=== PATIENT | male | born 1960 | race Caucasian/White ===

== ENCOUNTER 2020-06-20 04:42 | Inpatient (IN) | payer MEDICAID, OTHER ==
[~2020-06-20] VITALS: Ht 185.4 cm; Wt 78.5 kg
[2020-06-20] MEDS ORDERED: ONDANSETRON HCL 4 MG/2 ML VIAL IV ONE (05:30)
[2020-06-20] MEDS ORDERED: MORPHINE SULFATE 4 MG/ML SYR/VIAL IV ONE (05:30)
[2020-06-20] MEDS ORDERED: SODIUM CHLORIDE 0.9% 1,000 ML IV ONE ×3 (05:30→06:41)
[2020-06-20 06:24] LABS: Basophils # (auto) 0.1 10 ^3/uL (0-0.2); Basophils % (auto) 0.8 % (0.0-2.0); Eosinophils # (auto) 0.5 10 ^3/uL (0-0.8); Eosinophils % (auto) 4.7 % (0.0-7.0); Hematocrit 42.9 % (41.0-53.0); Hemoglobin 14.8 g/dL (13.5-17.5); Lymphocytes # (auto) 1.4 10 ^3/uL (0.4-5.4); Lymphocytes % (auto) 14.1 % (10.0-50.0); Mean Corpuscular Hemoglobin 30.8 pg (28.0-32.0); Mean Corpuscular Hgb Conc. 34.5 g/dL (32.0-36.0); Mean Corpuscular Volume 89.3 fL (80.0-100.0); Monocytes # (auto) 0.8 10 ^3/uL (0-1.3); Monocytes % (auto) 8.2 % (0.0-12.0); Neutrophils # (auto) 7.4 10 ^3/uL (1.6-8.6); Neutrophils % (auto) 72.2 % (37.0-80.0); Nucleated Red Blood Cells % 0.2 %; Platelet Count (auto) 158 10^3/uL (140-450); Red Blood Cells 4.81 10^6/uL (4.5-5.90); Red Cell Distribution Width 14.2 % (11.8-14.3); White Blood Cell 10.3 10^3/uL (4.4-10.8)
[2020-06-20 06:34] LABS: Alanine Aminotransferase 77 U/L (16-61); Albumin 3.3 g/dL (3.4-5.0); Amylase 65 U/L (25-115); Anion Gap 7 (5-15); Aspartate Aminotransferase 72 U/L (15-37); Blood Urea Nitrogen 12 mg/dL (7-18); Calcium 8.5 mg/dL (8.5-10.1); Carbon Dioxide 27 mmol/L (21-32); Chloride 104 mmol/L (98-107); GFR African American 89 mL/min; GFR Non-African American 73 mL/min; Glucose 102 mg/dL (74-106); Lipase 164 U/L (73-393); Magnesium 2.1 mg/dL (1.6-2.6); Sodium 138 mmol/L (136-145)
[2020-06-20 06:40] LABS: Alkaline Phosphatase 73 U/L (45-117); Bilirubin, Total 0.6 mg/dL (0.2-1.0); Total Protein 8.5 g/dL (6.4-8.2)
[2020-06-20] MEDS ORDERED: KETOROLAC TROMETH 30 MG/ML 1ML VIAL IV ONE (06:45)
[2020-06-20] MEDS ORDERED: cloNIDine HCL 0.1 MG TAB PO ONE (07:00)
[2020-06-20] MEDS ORDERED: NITROGLYCERIN 0.4 MG SL TAB SL PRN (09:30)
[2020-06-20] MEDS ORDERED: cefTRIAXone 1GM/50ML D5W 50 ML IV ONE (09:30)
[2020-06-20] MEDS ORDERED: PROMETHAZINE HCL 25 MG/ML 1ML IV PRN (09:30)
[2020-06-20] MEDS: SODIUM CHLORIDE 0.9% 1,000 ML IV SCH ×2 (10:30→19:19)
[2020-06-20] MEDS: FAMOTIDINE 20 MG TAB PO SCH (10:50)
[2020-06-20] MEDS: ENOXAPARIN SOD 40 MG/0.4 ML SYRINGE SC SCH (10:50)
[2020-06-20] MEDS: metroNIDAZOLE 500MG/100ML 100 ML IV SCH (13:59)
[2020-06-20] MEDS: MORPHINE SULF INJ 2 MG/ML SYRINGE 1ML IV PRN (14:16)
--- NOTE | 2020-06-20 15:00 | NUR ---
Telemetry admit from ER LYNN GO admitted to Telemetry unit after SBAR received. Patient oriented to FRANKLYN HERNANDEZ RN primary RN, unit, room, bed, and unit policies regarding patient care. Patient now on continuous telemetry monitoring, tele box # 69 and telemetry reading on arrival to unit is sinus rhythm 81. Patient is on room air, respirations even and unlabored. Patients states pain 6/10. Will medicate per orders. Patient is NPO at this time for possible procedure. Reviewed plan of care with patient, patient verbalized understanding. Bed in low and locked position, call light within reach. Will continue to monitor Q1 hour and PRN.
[2020-06-20 15:41] VITALS: BP 131/68
--- NOTE | 2020-06-20 15:50 | NUR ---
Dr. Carvajal at bedside Discussing plan of care with patient and this RN. Patient to have lithotripsy at 1800 tonight. Patient verbalized understanding. Will continue to monitor Q1 hour and PRN.
[2020-06-20] MEDS ORDERED: LEVO100T8 PO (16:00)
[2020-06-20 17:00] VITALS: BP 118/76
--- NOTE | 2020-06-20 17:24 | NUR ---
Call from Dr. Wei HUI states patient will have procedure Tuesday morning. New orders received. Will continue to monitor Q1 hour and PRN.
[2020-06-20 18:10] LABS: INR 1.2 (0.9-1.15)
--- NOTE | 2020-06-20 19:20 | NUR ---
Closing Note Report given to art specialist RN. No signs or symptoms of distress noted at this time.
--- NOTE | 2020-06-20 19:30 | NUR ---
Opening Shift Note Assumed care of patient, oriented x 4. No S/S of distress/SOB or pain. Instructed on POC and to call for assist PRN, patient verbalized understanding. Bed in lowest and locked position, call light within reach, will continue to monitor for changes Q1hr and PRN.
[2020-06-20 23:06] VITALS: BP 150/74
[2020-06-21] MEDS: metroNIDAZOLE 500MG/100ML 100 ML IV SCH ×4 (00:06→21:47)
[2020-06-21] MEDS: FAMOTIDINE 20 MG TAB PO SCH ×3 (00:07→21:47)
[2020-06-21] MEDS: traMADol HCL 50 MG TAB PO PRN (00:25)
--- NOTE | 2020-06-21 00:30 | NUR ---
COVID 19 swab obtained per hospital protocol and walked to lab by this RN. Patient tolerated well. Will continue care.
[2020-06-21] MEDS: MORPHINE SULF INJ 2 MG/ML SYRINGE 1ML IV PRN ×4 (02:58→19:10)
--- NOTE | 2020-06-21 02:58 | NUR ---
Patient made aware of pending urine sample at beginning of shift and verbalized understanding. Patient reports he urinated earlier in shift and "forgot about the sample". Hat provided for patient to assist in sample collection. Will continue care.
[2020-06-21] MEDS: SODIUM CHLORIDE 0.9% 1,000 ML IV SCH ×2 (04:56→15:19)
[2020-06-21 05:37] VITALS: BP 115/74
[2020-06-21 06:15] LABS: Basophils # (auto) 0.1 10 ^3/uL (0-0.2); Basophils % (auto) 0.7 % (0.0-2.0); Eosinophils # (auto) 0.2 10 ^3/uL (0-0.8); Eosinophils % (auto) 1.4 % (0.0-7.0); Hemoglobin 14.2 g/dL (13.5-17.5); Lymphocytes # (auto) 1.4 10 ^3/uL (0.4-5.4); Lymphocytes % (auto) 12.1 % (10.0-50.0); Mean Corpuscular Hgb Conc. 33.1 g/dL (32.0-36.0); Mean Corpuscular Volume 90.6 fL (80.0-100.0); Monocytes # (auto) 1.1 10 ^3/uL (0-1.3); Monocytes % (auto) 9.6 % (0.0-12.0); Neutrophils # (auto) 8.6 10 ^3/uL (1.6-8.6); Neutrophils % (auto) 76.2 % (37.0-80.0); Nucleated Red Blood Cells % 0.1 %; Platelet Count (auto) 136 10^3/uL (140-450); Red Blood Cells 4.74 10^6/uL (4.5-5.90); Red Cell Distribution Width 14.6 % (11.8-14.3); White Blood Cell 11.3 10^3/uL (4.4-10.8)
[2020-06-21 06:32] LABS: Albumin 2.8 g/dL (3.4-5.0)
[2020-06-21 06:36] LABS: Bilirubin, Total 1.3 mg/dL (0.2-1.0); Total Protein 7.2 g/dL (6.4-8.2)
--- NOTE | 2020-06-21 07:16 | NUR ---
Closing Note Patient lying in bed, eyes closed, respirations even and unlabored, appears asleep. Patient awakens easily to name and touch. Bed in lowest locked position, side rails up x2, call light within reach. No s/s of distress. Care endorsed to dayshift RN.
--- NOTE | 2020-06-21 07:35 | NUR ---
Opening Note Received report from overnight babysitter RN. Patient is resting in bed, easy to wake by calling name. Patient is on room air, respirations even and unlabored. Patient complains of abdominal and flank pain 8/10 and is requesting pain medications. Will medicate per orders. Reviewed plan of care with patient, patient verbalized understanding. Bed in low and locked position, call light within reach. Will continue to monitor Q1 hour and PRN.
[2020-06-21 09:00] VITALS: BP 111/73
[2020-06-21] MEDS: cefTRIAXone 1GM/50ML D5W 50 ML IV SCH (09:40)
[2020-06-21] MEDS: ENOXAPARIN SOD 40 MG/0.4 ML SYRINGE SC SCH (09:40)
--- NOTE | 2020-06-21 11:48 | NUR ---
Dr. Wilbert Sheppard at bedside Discussing plan of care with patient and this RN. New orders received, will implement new orders. Will continue to monitor Q1 hour and PRN.
[2020-06-21] MEDS ORDERED: LEVOTHYROXINE SODIUM 100 MCG/5 ML INJ IV ONE (12:00)
[2020-06-21 13:00] VITALS: BP 151/84
--- NOTE | 2020-06-21 13:29 | NUR ---
urine sample collected and sent to lab
[2020-06-21 13:37] LABS: Urine Bacteria NONE SEEN /hpf (None Seen); Urine Blood 2+ /uL (Negative); Urine Specific Gravity 1.027 (1.001-1.035); Urine WBC 66 /hpf (0 - 3)
[2020-06-21 14:02] LABS: Alcohol, Urine < 3.0 mg/dL (0-10); Barbiturate Scree,Urine NEGATIVE (NEGATIVE); Benzodiazephine Screen, Urine NEGATIVE (NEGATIVE); Cannabinoid Screen, Urine NEGATIVE (NEGATIVE); Cocaine Screen, Urine NEGATIVE (NEGATIVE); Phencyclidine Screen, Urine NEGATIVE (NEGATIVE)
--- NOTE | 2020-06-21 14:40 | NUR ---
phlebotomy technologist at bedside
[2020-06-21 15:01] LABS: Amphetamine Screen, Urine POSITIVE (NEGATIVE); Opiate Scree,Urine POSITIVE (NEGATIVE)
[2020-06-21 17:00] VITALS: BP 125/68
--- NOTE | 2020-06-21 19:05 | NUR ---
Closing Note Report given to shift supervisor melting RN. No signs or symptoms of distress noted at this time.
[2020-06-21 20:00] VITALS: BP 131/68
[2020-06-21 22:00] VITALS: BP 120/81
[2020-06-22] MEDS: SODIUM CHLORIDE 0.9% 1,000 ML IV SCH ×3 (01:19→22:14)
[2020-06-22] MEDS: MORPHINE SULF INJ 2 MG/ML SYRINGE 1ML IV PRN ×5 (04:06→22:15)
[2020-06-22 05:00] VITALS: BP 156/95
[2020-06-22] MEDS: metroNIDAZOLE 500MG/100ML 100 ML IV SCH ×3 (06:23→22:15)
--- NOTE | 2020-06-22 07:15 | NUR ---
Opening Note Received report from night auditor RN. Patient is awake, alert and oriented x4. No signs or symptoms of distress noted at this time. Patient is on room air, respirations even and unlabored. Patient complains of abdominal 9/10 and is requesting pain medications. Will medicate per orders. Reviewed plan of care with patient, patient verbalized understanding. Bed in low and locked position, call light within reach. Will continue to monitor Q1 hour and PRN.
[2020-06-22] MEDS: FAMOTIDINE 20 MG TAB PO SCH ×2 (08:34→22:15)
[2020-06-22] MEDS: cefTRIAXone 1GM/50ML D5W 50 ML IV SCH (08:34)
[2020-06-22] MEDS: LEVOTHYROXINE SODIUM 100 MCG/5 ML INJ IV SCH (08:34)
[2020-06-22] MEDS: ENOXAPARIN SOD 40 MG/0.4 ML SYRINGE SC SCH (08:38)
[2020-06-22 09:00] VITALS: BP 145/86
[2020-06-22] MEDS ORDERED: VANCOMYCIN 1GM/250ML 250 ML IV ONE (10:30)
[2020-06-22] MEDS ORDERED: VANCOMYCIN PER PHARMACY 0 MG IV SCH (10:30)
--- NOTE | 2020-06-22 10:30 | NUR ---
Dr. Wilbert Sheppard at nurse station MD updating this RN on plan of care. New orders received, will implement new orders. Will continue to monitor Q1 hour and PRN.
[2020-06-22 13:00] VITALS: BP 130/77
--- NOTE | 2020-06-22 16:45 | NUR ---
IV Removed IV removed with clean sterile technique, catheter fully intact. Pressure dressing applied to site. Patient tolerated well. Will continue to monitor Q1 hour and PRN.
[2020-06-22 17:00] VITALS: BP 106/82
--- NOTE | 2020-06-22 17:00 | NUR ---
IV Insertion IV access obtained, via clean sterile technique by inserting 22 gauge catheter to left forearm. IV secured properly. No trauma to site. Patient tolerated well. Will continue to monitor Q1 hour and PRN.
--- NOTE | 2020-06-22 18:57 | NUR ---
Closing Note Report given to retail shift manager RN. No signs or symptoms of distress noted at this time.
[2020-06-22] MEDS: traMADol HCL 50 MG TAB PO PRN (19:18)
[2020-06-22 22:00] VITALS: BP 145/83
[2020-06-22] MEDS: TEMAZEPAM 15 MG CAP PO PRN (22:15)
[2020-06-23] MEDS ORDERED: VANCOMYCIN 1GM/250ML 250 ML IV SCH (04:00)
[2020-06-23 05:00] VITALS: BP 141/88
[2020-06-23 05:17] LABS: Basophils # (auto) 0.1 10 ^3/uL (0-0.2); Basophils % (auto) 0.4 % (0.0-2.0); Eosinophils # (auto) 0.2 10 ^3/uL (0-0.8); Eosinophils % (auto) 1.6 % (0.0-7.0); Hematocrit 43.9 % (41.0-53.0); Hemoglobin 14.6 g/dL (13.5-17.5); Lymphocytes # (auto) 1.6 10 ^3/uL (0.4-5.4); Lymphocytes % (auto) 10.3 % (10.0-50.0); Mean Corpuscular Hemoglobin 29.9 pg (28.0-32.0); Mean Corpuscular Hgb Conc. 33.2 g/dL (32.0-36.0); Monocytes # (auto) 1.5 10 ^3/uL (0-1.3); Monocytes % (auto) 9.7 % (0.0-12.0); Neutrophils # (auto) 12.3 10 ^3/uL (1.6-8.6); Nucleated Red Blood Cells % 0.8 %; Platelet Count (auto) 156 10^3/uL (140-450); Red Blood Cells 4.88 10^6/uL (4.5-5.90); Red Cell Distribution Width 14.2 % (11.8-14.3); White Blood Cell 15.7 10^3/uL (4.4-10.8)
[2020-06-23] MEDS: metroNIDAZOLE 500MG/100ML 100 ML IV SCH ×3 (06:00→21:42)
[2020-06-23] MEDS: MORPHINE SULF INJ 2 MG/ML SYRINGE 1ML IV PRN ×4 (06:35→18:29)
--- NOTE | 2020-06-23 07:35 | NUR ---
SHIFT OPENING NOTE RECEIVED PATIENT LYING IN BED SLEEPING COMFORTABLY AND WAS IN NO RESPIRATORY DISTRESS. PATIENT EASILY AWAKENED AND VOICED NO C/O PAIN/ DISCOMFORT AT THIS TIME. SHIFT ASSESSMENT DONE AND CHARTED. PLAN OF CARE, MEDICATIONS SAFETY AND TREATMENTS DISCUSSED WITH PATIENT AND PATIENT VERBALIZED UNDERSTANDING. PATIENT NPO FOR LITHOTRIPSY AND PATIENT IS AWARE. WILL CONTINUE TO MONITOR PATIENT.
[2020-06-23 08:00] VITALS: BP 129/77
[2020-06-23] MEDS: cefTRIAXone 1GM/50ML D5W 50 ML IV SCH (08:49)
[2020-06-23 09:00] VITALS: BP 129/77
[2020-06-23] MEDS ORDERED: LEVOTHYROXINE SODIUM 25 MCG TAB PO ONE (10:00)
[2020-06-23] MEDS ORDERED: LEVOTHYROXINE SODIUM 100 MCG/5 ML INJ IV ONE ×2 (10:00→12:30)
[2020-06-23] MEDS ORDERED: LEVOTHYROXINE SODIUM 112 MCG TAB PO ONE (10:00)
[2020-06-23] MEDS: ENOXAPARIN SOD 40 MG/0.4 ML SYRINGE SC SCH (10:00)
[2020-06-23] MEDS: LEVOTHYROXINE SODIUM 100 MCG/5 ML INJ IV SCH (10:16)
--- NOTE | 2020-06-23 12:41 | NUR ---
Nutrition Assessment Note please see attached link for complete assessment Est energy needs BW 70 [id number] kcal (30-33 kcal/kg BW) Est protein needs: 70-84 g (1.0-1.2 g/kg BW) will reassess prn Addendum: 06/23/20 at [address] Amended: Links added.
[2020-06-23 13:00] VITALS: BP 148/98
--- NOTE | 2020-06-23 13:41 | NUR ---
TALKED TO DR. TIANNA LUCAS STATED THAT PATIENT IS CLEARED TO HAVE LITHOTRIPSY DONE.
[2020-06-23] MEDS: FAMOTIDINE 20 MG TAB PO SCH ×2 (14:31→21:42)
--- NOTE | 2020-06-23 15:39 | NUR ---
assessment Patient is a 60 year old male who is alert and oriented. Patients cognitive abilities are intact. Prior to admission patient lived home with friends and functioned independently. Patient informed me he is able to care for his own ADLs. Per patient he will return home to his prior living arrangements post discharge and family will transport him home. Patient has no insurance. Patient has been assessed by Burak Perez of [facility]. Patient may qualify for [facility] if she brings back all her paperwork. I have provided patient with resources for [facility], Dr. Diaz, and [facility] urgent care for follow up visits. I have provided patient with a prescription card from community assistance program. Patient has no post discharge needs identified at this time. I will continue to monitor and follow up as appropriate. I informed patient he has a right to speak to a social media project manager regarding all care. I informed patient he has a right to participate in any and all discharge planning. Patient does not have a POA and advanced directive. I have offered patient information on POA and advanced directives. I informed the patient the advantages and benefits of having an Advanced Directive. Patient verbalized understanding and agreed to discharge plan. Addendum: 06/23/20 at 1541 by Peggy JOHNSON Amended: Links added.
[2020-06-23 17:00] VITALS: BP 121/79
[2020-06-23] MEDS: VANCOMYCIN 1GM/250ML 250 ML IV SCH (18:33)
--- NOTE | 2020-06-23 19:38 | NUR ---
Received call from Dr. Carvajal who states that the patient's scheduled Lithotripsy has been cancelled by the Anesthesiologist due to the patient's elevated TSH level. Per Dr. Carvajal, the patient will need to be transferred to a higher level of care for the procedure.
[2020-06-23] MEDS: SODIUM CHLORIDE 0.9% 1,000 ML IV SCH (21:43)
[2020-06-23 22:00] VITALS: BP 132/85
[2020-06-24] MEDS: MORPHINE SULF INJ 2 MG/ML SYRINGE 1ML IV PRN ×5 (01:10→20:20)
[2020-06-24] MEDS: SODIUM CHLORIDE 0.9% 1,000 ML IV SCH ×3 (03:19→23:19)
[2020-06-24] MEDS: VANCOMYCIN 1GM/250ML 250 ML IV SCH ×2 (04:00→17:40)
[2020-06-24 04:27] LABS: Calcium 7.4 mg/dL (8.5-10.1)
[2020-06-24 04:28] LABS: BUN/Creatinine Ratio 15.8
[2020-06-24 05:00] VITALS: BP 122/76
--- NOTE | 2020-06-24 05:10 | NUR ---
PAIN ASSESSMENT The patient c/o 10/10 abdominal pain and is requesting pain medication. Will treat with PRN morphine.
[2020-06-24] MEDS: metroNIDAZOLE 500MG/100ML 100 ML IV SCH ×3 (06:00→22:00)
--- NOTE | 2020-06-24 06:10 | NUR ---
PAIN REASSESSMENT The patient is resting comfortably in bed. Will continue to monitor the patient's status.
[2020-06-24] MEDS: cefTRIAXone 1GM/50ML D5W 50 ML IV SCH (08:48)
[2020-06-24 09:00] VITALS: BP 117/72
[2020-06-24] MEDS: FAMOTIDINE 20 MG TAB PO SCH ×2 (09:42→22:00)
[2020-06-24] MEDS: ENOXAPARIN SOD 40 MG/0.4 ML SYRINGE SC SCH (09:53)
[2020-06-24] MEDS ORDERED: LEVOTHYROXINE SODIUM 25 MCG TAB PO SCH (10:00)
[2020-06-24] MEDS ORDERED: LEVOTHYROXINE SODIUM 100 MCG/5 ML INJ IV ONE (10:00)
[2020-06-24] MEDS ORDERED: LEVOTHYROXINE SODIUM 112 MCG TAB PO SCH (10:00)
[2020-06-24 12:00] VITALS: BP 123/71
[2020-06-24] MEDS: traMADol HCL 50 MG TAB PO PRN (12:14)
[2020-06-24 17:00] VITALS: BP 121/76
--- NOTE | 2020-06-24 19:55 | NUR ---
Opening Shift Note Assumed care of patient, awake and alert. No S/S of distress/SOB. Patient c/o 8/10 abdominal pain and is requesting pain medication. Will treat with PRN pain medication. Bed is locked in lowest position with call light within reach. Instructed on POC and to call for assist PRN, will continue to monitor for changes Q1hr and PRN.
[2020-06-24 22:00] VITALS: BP 130/80
[2020-06-25] MEDS: MORPHINE SULF INJ 2 MG/ML SYRINGE 1ML IV PRN ×7 (00:10→22:41)
[2020-06-25] MEDS: TEMAZEPAM 15 MG CAP PO PRN ×2 (00:55→22:57)
[2020-06-25] MEDS: VANCOMYCIN 1GM/250ML 250 ML IV SCH ×2 (04:15→15:42)
[2020-06-25 05:00] VITALS: BP 127/97
[2020-06-25] MEDS: metroNIDAZOLE 500MG/100ML 100 ML IV SCH ×3 (06:00→22:40)
[2020-06-25] MEDS: LEVOTHYROXINE SODIUM 25 MCG TAB PO SCH (07:00)
[2020-06-25] MEDS: LEVOTHYROXINE SODIUM 112 MCG TAB PO SCH (07:00)
[2020-06-25] MEDS: cefTRIAXone 1GM/50ML D5W 50 ML IV SCH (08:49)
[2020-06-25 09:00] VITALS: BP 126/67
[2020-06-25] MEDS: ENOXAPARIN SOD 40 MG/0.4 ML SYRINGE SC SCH (10:00)
[2020-06-25] MEDS: FAMOTIDINE 20 MG TAB PO SCH ×2 (10:33→22:40)
[2020-06-25 13:00] VITALS: BP 102/71
--- NOTE | 2020-06-25 14:28 | NUR ---
MORPHINE 2 MG IVP GIVEN PER PRN ORDER FOR C/O SHARP LOWER BACK AND ABDOMINAL PAIN.
--- NOTE | 2020-06-25 14:30 | NUR ---
PATIENT FEELING SAD TODAY THEY HAD HIS DOG FOR 16 YEARS "PUT DOWN".
--- NOTE | 2020-06-25 15:55 | NUR ---
Nutrition Followup Note Pt wt is 79.7 kg Pt is with a regular diet, appetite is good aeb ave 88% PO intake over 2 meals per RN doc. Pt with no distress. Will continue to monitor PO status, skin status, pertinent labs and weight trends. Will f/u in 3-5 days. Est energy needs BW 70 [id number] kcal (30-33 kcal/kg BW) Est protein needs: 70-84 g (1.0-1.2 g/kg BW) will reassess prn LABS: BUN 21 H, CR 1.33 H, Ca 7.4 L, Alb 2.8 L GI: Pt had 1 BM on 06/25 per RN doc. BS: 231 low risk. Refer to wound assessment report for full details. PES: Altered nutrition related lab values r.t current chronic medical condition aeb mod hypoalb hyperbil Comments 1) resume diet along with ensure enlive 1 carton bid as medically feasible 2) continue current plan of care
[2020-06-25 17:00] VITALS: BP 151/91
--- NOTE | 2020-06-25 19:06 | NUR ---
Opening Shift Note Assumed care of patient after receiving report from BALAJI King. Patient is awake and alert. No S/S of distress/SOB or pain. Call light within reach, bed in lowest locked position x2 side rails. Instructed on POC and to call for assist PRN, will continue to monitor for changes Q1hr and PRN.
--- NOTE | 2020-06-25 21:30 | NUR ---
Patient signed AMA for smoking. Patient educated on risks of smoking. Off unit at this time. Patient told to notify nurse when back on unit.
[2020-06-25 22:00] VITALS: BP 108/68
[2020-06-25] MEDS: SODIUM CHLORIDE 0.9% 1,000 ML IV SCH (22:53)
[2020-06-26] MEDS: traMADol HCL 50 MG TAB PO PRN (00:28)
--- NOTE | 2020-06-26 03:48 | NUR ---
Spoke with lab RE Tommy day Spoke with outside laborer regarding status of 03:00 [place] barb order. Per outside laborer, executive producer promos is held up on other unit in code, will draw labs after.
[2020-06-26 04:31] LABS: Basophils # (auto) 0.1 10 ^3/uL (0-0.2); Basophils % (auto) 0.9 % (0.0-2.0); Eosinophils # (auto) 0.4 10 ^3/uL (0-0.8); Eosinophils % (auto) 3.2 % (0.0-7.0); Hematocrit 40.3 % (41.0-53.0); Hemoglobin 13.7 g/dL (13.5-17.5); Lymphocytes # (auto) 1.3 10 ^3/uL (0.4-5.4); Lymphocytes % (auto) 9.6 % (10.0-50.0); Mean Corpuscular Hemoglobin 30.3 pg (28.0-32.0); Monocytes # (auto) 1.7 10 ^3/uL (0-1.3); Monocytes % (auto) 12.4 % (0.0-12.0); Neutrophils % (auto) 73.9 % (37.0-80.0); Nucleated Red Blood Cells % 0.1 %; Platelet Count (auto) 151 10^3/uL (140-450); Red Blood Cells 4.53 10^6/uL (4.5-5.90); White Blood Cell 13.5 10^3/uL (4.4-10.8)
[2020-06-26 05:04] LABS: BUN/Creatinine Ratio 13.3; Potassium 4.1 mmol/L (3.5-5.1)
[2020-06-26] MEDS: MORPHINE SULF INJ 2 MG/ML SYRINGE 1ML IV PRN (05:10)
[2020-06-26] MEDS: SODIUM CHLORIDE 0.9% 1,000 ML IV SCH ×2 (05:19→15:19)
[2020-06-26] MEDS: metroNIDAZOLE 500MG/100ML 100 ML IV SCH ×2 (05:31→14:19)
[2020-06-26 05:32] VITALS: BP 122/59
[2020-06-26] MEDS: LEVOTHYROXINE SODIUM 112 MCG TAB PO SCH (05:59)
[2020-06-26] MEDS: LEVOTHYROXINE SODIUM 25 MCG TAB PO SCH (06:00)
[2020-06-26] MEDS ORDERED: VANCOMYCIN 1GM/250ML 250 ML IV SCH (06:00)
--- NOTE | 2020-06-26 08:00 | NUR ---
Upon entering patients room patient states "Its 8 oclock so lets go, I have the procedure", I explained that when the flower shop laborer/designer is ready for the patient they will call, as of now they have not called. Patient became irritated, and angry stating "I'm no ones priority here its ridiculous", I told patient that they have to prioritize based on patient status and they would definitely take him as soon as possible, we just have to wait. The patient became more agitated and said "ya whatever". Addendum: 06/26/20 at 0814 by Christine Henriquez RN WRONG PATIENT.
--- NOTE | 2020-06-26 08:41 | NUR ---
PATIENT TAKE DOWN TO PREOP, VITALS WNL, PATIENT ALERT AND ORIENTED AT TIME OF TRANSFER
[2020-06-26] MEDS: cefTRIAXone 1GM/50ML D5W 50 ML IV SCH (09:00)
[2020-06-26 09:07] VITALS: BP 152/80
[2020-06-26] MEDS ORDERED: IOHEXOL 300 MG/ML 100ML BOTTLE IJ ONE (09:40)
[2020-06-26] MEDS ORDERED: ePHEDrine SULFATE 50 MG/ML AMP IV ONE (09:58)
[2020-06-26] MEDS: ENOXAPARIN SOD 40 MG/0.4 ML SYRINGE SC SCH (10:00)
[2020-06-26] MEDS: FAMOTIDINE 20 MG TAB PO SCH (10:00)
[2020-06-26] MEDS ORDERED: ceFAZolin 1GM/50ML 50 ML IV ONE (10:02)
[2020-06-26] MEDS ORDERED: MEPERIDINE HCL (25 MG/ML) 1ML VIAL ONE (10:12)
[2020-06-26] MEDS ORDERED: fentaNYL CITRATE 100 MCG/2 ML VL ONE (10:12)
[2020-06-26] MEDS ORDERED: MIDAZOLAM HCL 1MG/1ML-2 ML VIAL ONE (10:12)
[2020-06-26] MEDS ORDERED: PROPOFOL 10 MG/ML 20 ML IV ONE (10:15)
[2020-06-26] MEDS ORDERED: DexAMETHasone SOD PHOS 10MG/1ML VIAL INJ ONE (10:15)
[2020-06-26 10:37] LABS: INR 1.51 (0.9-1.15)
[2020-06-26] MEDS ORDERED: MIDAZOLAM HCL 1MG/1ML-2 ML VIAL IV PRN ×2 (12:00)
[2020-06-26] MEDS ORDERED: ONDANSETRON HCL 4 MG/2 ML VIAL IV PRN ×2 (12:00)
[2020-06-26] MEDS ORDERED: MORPHINE SULFATE 4 MG/ML SYR/VIAL IV PRN ×2 (12:00)
[2020-06-26] MEDS ORDERED: LABETALOL HCL 5 MG/ML 4ML SYRINGE IV PRN ×2 (12:00)
[2020-06-26] MEDS ORDERED: ePHEDrine SULFATE 50 MG/ML AMP IV PRN ×2 (12:00)
[2020-06-26] MEDS ORDERED: HYDROmorphone HCL 2 MG/ML VL IV PRN ×2 (12:00)
--- NOTE | 2020-06-26 12:25 | NUR ---
Patient returned from lithotripsy, alert and oriented x 4, respirations even and unlabored. Patient on room air saturating at 97%. Dr Sheppard would like patient to go home after 4PM, updated patient. patient verbalized understanding.
[2020-06-26 13:00] VITALS: BP 138/83
[2020-06-26 14:46] VITALS: BP 131/68
--- NOTE | 2020-06-26 16:16 | NUR ---
patient signed discharge paperwork, discussed follow up appointment and showed the information for address and phone number for [facility]. Instructed patient on medications, gave literature, he verbalized understanding of instructions. Patient family member arrived at this time to get prescription from patient to take to the pharmacy. I let the family know that the patient was ready to go and she stated she would come back for the patient after she stopped by the pharmacy.
[2020-06-26 16:35] VITALS: BP 127/77
--- NOTE | 2020-06-26 17:30 | NUR ---
Patient discharged family here to bean picker patient at main lobby.
== END 2020-06-26 17:30 | disposition home or self-care (01) | DRG 720 ==
LOC: ER 04:42 → EDBD 04:42 → TELE 04:43 → TELE-WESTW 15:03
PROVIDERS: ADMIT Internal Medicine; ATTEND Family Medicine
PROC: 0TF6XZZ Fragmentation in Right Ureter, External Approach (ICD-10-PCS; 2020-06-26)
PROC: 0TF3XZZ Fragmentation in Right Kidney Pelvis, External Approach (ICD-10-PCS; principal; 2020-06-26 10:01)
DX: A41.9 Sepsis, unspecified organism (principal); N13.6 Pyonephrosis; M19.90 Unspecified osteoarthritis, unspecified site; Z90.49 Acquired absence of other specified parts of digestive tract; K52.9 Noninfective gastroenteritis and colitis, unspecified; R00.1 Bradycardia, unspecified; B19.20 Unspecified viral hepatitis C without hepatic coma; E03.9 Hypothyroidism, unspecified; K70.30 Alcoholic cirrhosis of liver without ascites; F17.200 Nicotine dependence, unspecified, uncomplicated; E86.0 Dehydration; G89.4 Chronic pain syndrome; M41.9 Scoliosis, unspecified; N13.9 Obstructive and reflux uropathy, unspecified; Z87.442 Personal history of urinary calculi; Z83.1 Family history of other infectious and parasitic diseases; Z20.828 Contact with and (suspected) exposure to other viral communicable diseases
CPT/HCPCS: 36415; 71045; 74176; 76705; 80048; 80053; 80202; 80307; 80320; 81001; 82150; 82565; 82962; 83605; 83690; 83735; 84443; 84484; 85025; 85610; 85730; 87040; 87077; 87086; 87186; 93306; 96361; 96365; 96372; 96375; G0378; J0690; J0696; J1100; J1885; J2250; J2405; J2704; J3490

== ENCOUNTER 2021-03-30 12:32 | Emergency (ER) | payer MEDICAID ==
[~2021-03-30] VITALS: Ht 185.4 cm; Wt 86.2 kg
[~2021-03-30 12:32] MED LIST: LEVO100T8 PO
[2021-03-30 15:13] VITALS: BP 122/86
[2021-03-30] MEDS ORDERED: ACETAMINOPHEN/CODEINE#3 (300/30mg) TAB PO ONE (15:45)
== END 2021-03-30 16:13 | disposition home or self-care (01) ==
LOC: ER 12:32
DX: S62.306A Unspecified fracture of fifth metacarpal bone, right hand, initial encounter for closed fracture (principal); F17.210 Nicotine dependence, cigarettes, uncomplicated; F15.10 Other stimulant abuse, uncomplicated; Z90.49 Acquired absence of other specified parts of digestive tract; W22.8XXA Striking against or struck by other objects, initial encounter; Y93.89 Activity, other specified; Y92.89 Other specified places as the place of occurrence of the external cause; Y99.8 Other external cause status
CPT/HCPCS: 29125; 73120

== ENCOUNTER 2023-01-31 16:19 | Inpatient (IN) | payer MEDICAID ==
[~2023-01-31] VITALS: Ht 185.4 cm; Wt 81.6 kg
[2023-01-31] MEDS ORDERED: MORPHINE SULFATE 4 MG/ML SYR/VIAL IV ONE (16:45)
[2023-01-31] MEDS ORDERED: SODIUM CHLORIDE 0.9% 1,000 ML IVB ONE (16:45)
[2023-01-31] MEDS ORDERED: ONDANSETRON HCL 4 MG/2 ML VIAL IV ONE (16:45)
[2023-01-31 17:01] LABS: Basophils # (auto) 0.1 10 ^3/uL (0-0.2); Basophils % (auto) 0.7 % (0.0-2.0); Eosinophils # (auto) 0.4 10 ^3/uL (0-0.8); Eosinophils % (auto) 5.2 % (0.0-7.0); Hematocrit 46.8 % (41.0-53.0); Hemoglobin 16.2 g/dL (13.5-17.5); Lymphocytes # (auto) 1.4 10 ^3/uL (0.4-5.4); Lymphocytes % (auto) 16.3 % (10.0-50.0); Mean Corpuscular Hemoglobin 29.9 pg (28.0-32.0); Mean Corpuscular Hgb Conc. 34.6 g/dL (32.0-36.0); Mean Corpuscular Volume 86.2 fL (80.0-100.0); Monocytes # (auto) 0.6 10 ^3/uL (0-1.3); Monocytes % (auto) 6.7 % (0.0-12.0); Neutrophils % (auto) 71.1 % (37.0-80.0); Nucleated Red Blood Cells % 1.3 %; Red Blood Cells 5.43 10^6/uL (4.5-5.90); White Blood Cell 8.5 10^3/uL (4.4-10.8)
[2023-01-31 17:24] LABS: Albumin 3.5 g/dL (3.4-5.0); BUN/Creatinine Ratio 9.4 (10.0-20.0); Calcium 8.8 mg/dL (8.5-10.1); Potassium 4.3 mmol/L (3.5-5.1)
[2023-01-31 17:26] LABS: Bilirubin, Total 0.9 mg/dL (0.2-1.0); Total Protein 7.8 g/dL (6.4-8.2)
[2023-01-31] MEDS ORDERED: PANTOPRAZOLE 40 MG/10 ML VIAL INJ IV ONE (19:30)
[2023-01-31] MEDS ORDERED: ACETAMINOPHEN 325 MG TAB PO PRN (19:30)
[2023-01-31] MEDS ORDERED: ONDANSETRON HCL 4 MG/2 ML VIAL IV PRN (19:30)
[2023-01-31] MEDS ORDERED: IOHEXOL 300 MG/ML 100ML BOTTLE IJ ONE (19:39)
[2023-01-31] MEDS ORDERED: KETOROLAC TROMETH 30 MG/ML 1ML VIAL IV ONE (19:45)
[2023-01-31] MEDS: SODIUM CHLORIDE 0.9% 1,000 ML IV SCH (23:18)
[2023-02-01 04:39] LABS: Basophils # (auto) 0.1 10 ^3/uL (0-0.2); Basophils % (auto) 1.2 % (0.0-2.0); Eosinophils # (auto) 0.5 10 ^3/uL (0-0.8); Hematocrit 41.1 % (41.0-53.0); Hemoglobin 14.5 g/dL (13.5-17.5); Lymphocytes # (auto) 1.4 10 ^3/uL (0.4-5.4); Lymphocytes % (auto) 21.2 % (10.0-50.0); Mean Corpuscular Hemoglobin 30.4 pg (28.0-32.0); Mean Corpuscular Hgb Conc. 35.3 g/dL (32.0-36.0); Mean Corpuscular Volume 86.2 fL (80.0-100.0); Monocytes # (auto) 0.6 10 ^3/uL (0-1.3); Monocytes % (auto) 8.6 % (0.0-12.0); Neutrophils # (auto) 4.2 10 ^3/uL (1.6-8.6); Nucleated Red Blood Cells % 0.3 %; Red Blood Cells 4.77 10^6/uL (4.5-5.90); Red Cell Distribution Width 14.9 % (11.8-14.3); White Blood Cell 6.8 10^3/uL (4.4-10.8)
[2023-02-01 04:58] LABS: BUN/Creatinine Ratio 11.8 (10.0-20.0); Potassium 3.9 mmol/L (3.5-5.1)
[2023-02-01 05:00] LABS: Bilirubin, Total 0.9 mg/dL (0.2-1.0); Total Protein 6.9 g/dL (6.4-8.2)
[2023-02-01] MEDS: KETOROLAC TROMETH 30 MG/ML 1ML VIAL IV PRN ×3 (05:04→18:25)
[2023-02-01] MEDS: SODIUM CHLORIDE 0.9% 1,000 ML IV SCH ×2 (09:11→22:10)
[2023-02-01] MEDS: PANTOPRAZOLE 40 MG/10 ML VIAL INJ IV SCH (11:33)
[2023-02-01] MEDS: ENOXAPARIN SOD 40 MG/0.4 ML SYRINGE SC SCH (11:34)
[2023-02-01 22:00] VITALS: BP 134/66
[2023-02-01 22:11] LABS: Urine WBC None Seen /hpf (0 - 3)
[2023-02-01 22:24] LABS: Urine Bacteria NONE SEEN /hpf (None Seen); Urine Blood Negative /uL (Negative); Urine Specific Gravity 1.007 (1.001-1.035)
[2023-02-01 22:35] LABS: Alcohol, Urine < 3.0 mg/dL (0-10); Amphetamine Screen, Urine POSITIVE (NEGATIVE); Barbiturate Scree,Urine NEGATIVE (NEGATIVE); Benzodiazephine Screen, Urine NEGATIVE (NEGATIVE); Cannabinoid Screen, Urine NEGATIVE (NEGATIVE); Cocaine Screen, Urine NEGATIVE (NEGATIVE); Opiate Scree,Urine NEGATIVE (NEGATIVE); Phencyclidine Screen, Urine NEGATIVE (NEGATIVE)
[2023-02-02 05:00] VITALS: BP 139/79
[2023-02-02 08:00] VITALS: BP 133/66
[2023-02-02] MEDS: PANTOPRAZOLE 40 MG/10 ML VIAL INJ IV SCH (09:28)
[2023-02-02] MEDS: ENOXAPARIN SOD 40 MG/0.4 ML SYRINGE SC SCH (09:28)
[2023-02-02] MEDS: SODIUM CHLORIDE 0.9% 1,000 ML IV SCH (10:53)
[2023-02-02] MEDS ORDERED: HYDR-4902 PO (11:34)
[2023-02-02] MEDS ORDERED: LEVO125T PO (11:34)
[2023-02-02 12:23] VITALS: BP 141/80
[2023-02-03 11:39] LABS: Hepatitis A Ab IgM Negative; Hepatitis B Core IgM Negative
[2023-02-03 11:42] LABS: Hepatitis C Antibody Positive (Negative)
== END 2023-02-02 15:30 | disposition home or self-care (01) ==
LOC: ER 16:19 → OVERFLOW 19:30 → EAST 02-01 17:19
PROVIDERS: ADMIT Nurse Practitioner Family; ATTEND Internal Medicine
DX: K74.60 Unspecified cirrhosis of liver (principal); D73.89 Other diseases of spleen; F17.210 Nicotine dependence, cigarettes, uncomplicated; R91.8 Other nonspecific abnormal finding of lung field; I10 Essential (primary) hypertension; Z20.822 Contact with and (suspected) exposure to COVID-19; Z80.3 Family history of malignant neoplasm of breast; Z80.8 Family history of malignant neoplasm of other organs or systems; Z80.42 Family history of malignant neoplasm of prostate; Z83.3 Family history of diabetes mellitus; Z87.442 Personal history of urinary calculi; Z90.49 Acquired absence of other specified parts of digestive tract; Z71.6 Tobacco abuse counseling
CPT/HCPCS: 36415; 71260; 74176; 74177; 76536; 76700; 80053; 80074; 80307; 81001; 82977; 83690; 85025; 86803; 87340; 87426; C9113; G0378; J1885; J2405

== ENCOUNTER 2024-01-18 22:55 | Emergency (ER) | payer MEDICAID ==
[~2024-01-18] VITALS: Ht 185.4 cm; Wt 81.8 kg
[~2024-01-18 22:55] MED LIST changes: +HYDR-4902 PO; -LEVO100T8 PO; +LEVO750T40 PO
[2024-01-19] MEDS ORDERED: IBUP-1455 PO (02:03)
[2024-01-19] MEDS ORDERED: HYDR-4902 PO (02:03)
[2024-01-19] MEDS: HYDROcodone-ACET 5/325MG TAB PO ONE (02:22)
[2024-01-19 02:27] VITALS: BP 114/62; PULSE 72; RESP 16; TEMP 98.2; O2SAT 99
== END 2024-01-19 02:26 | disposition home or self-care (01) ==
LOC: ER 22:55
DX: L03.116 Cellulitis of left lower limb (principal); F17.210 Nicotine dependence, cigarettes, uncomplicated; Z90.49 Acquired absence of other specified parts of digestive tract; Z87.442 Personal history of urinary calculi